=== PATIENT | male | born 1980 | race Caucasian/White ===

== ENCOUNTER 2017-02-18 12:45 | Outpatient (CLI) | payer OTHER ==
[2017-02-18] MEDS ORDERED: IOTHALAMATE MEGLUMINE 50 ML VIAL ONE (13:17)
[2017-02-18] MEDS ORDERED: GADOPENTETATE DIMEGLUMINE 5 ML VIAL IVP ONE ×3 (13:17→15:00)
[2017-02-18] MEDS ORDERED: LIDOCAINE 1% 10 ML MDV ONE ×2 (13:18→13:52)
[2017-02-18] MEDS ORDERED: IOTHALAMATE MEGLUMINE 50 ML VIAL IVP ONE ×2 (14:14→15:00)
[2017-02-18] MEDS ORDERED: BUFFERED LIDOCAINE 10 ML SYRINGE IU ONE ×2 (14:14→15:00)
[2017-02-18] MEDS: LIDOCAINE 1% 10 ML MDV SUBQ ONE ×2 (14:16→15:19)
--- NOTE | 2017-02-18 17:08 | MRI Report ---
EXAM: LEFT SHOULDER MRI ARTHROGRAM WITH CONTRAST EXAM DATE: 02/18/2017 03:33 PM. CLINICAL HISTORY: Bilateral shoulder pain and decreased range of motion for 4-5 months. COMPARISON: None. TECHNIQUE: Multiplanar, multisequence T1-weighted and fluid-sensitive sequences of the shoulder after an arthrographic injection of dilute gadolinium, dictated under a separate exam. Other: None. FINDINGS: Acromioclavicular Region: The acromion is type II. The acromioclavicular joint is unremarkable. The c oracoacromial and coracoclavicular ligaments are intact. There is no contrast or fluid in the subacro mial/subdeltoid bursa. Glenohumeral Region: No subluxation. No loose bodies. The articular cartilage is unremarkable. The gl enohumeral ligaments and joint capsule are unremarkable. Bone Marrow: No fracture, marrow edema or bone lesions. Labrum: The labrum is unremarkable. Biceps Tendon: The long head of the biceps tendon and biceps christofer are intact. Musculature/Rotator Cuff: The subscapularis, supraspinatus, infraspinatus, and teres minor tendons ar e intact. No edema or fatty atrophy. Other: The subcutaneous tissues are unremarkable. IMPRESSION: 1. No acute findings. [facility] MUSCULOSKELET[facility]IOLOG[facility] SECTION Referring Provider Line: [phone] SITE ID: [id number]
--- NOTE | 2017-02-18 17:08 | MRI Report ---
EXAM: RIGHT SHOULDER MRI ARTHROGRAM WITH CONTRAST EXAM DATE: 02/18/2017 03:33 PM. CLINICAL HISTORY: Bilateral shoulder pain and decreased range of motion for 4-5 months. COMPARISON: None. TECHNIQUE: Multiplanar, multisequence T1-weighted and fluid-sensitive sequences of the shoulder after an arthrographic injection of dilute gadolinium, dictated under a separate exam. Other: None. FINDINGS: Acromioclavicular Region: The acromion is type II. Mild acromioclavicular osteoarthropathy is present . The coracoacromial and coracoclavicular ligaments are intact. There is no contrast or fluid in the subacromial/subdeltoid bursa. Glenohumeral Region: No subluxation. No loose bodies. The articular cartilage is unremarkable. The gl enohumeral ligaments and joint capsule are unremarkable. Bone Marrow: No fractures. There is minimal osteophyte formation in the glenohumeral joint. Labrum: The labrum is unremarkable. Biceps Tendon: The long head of the biceps tendon and biceps christofre are intact. Musculature/Rotator Cuff: The subscapularis tendon is unremarkable. The supraspinatus tendon has a pa rtial-thickness joint-sided tear, which measures 1.3 cm in width, 1.3 cm in length, and is 80% in thi ckness. Infraspinatus and teres minor tendons are intact. No edema or fatty atrophy. Other: The subcutaneous tissues are unremarkable. IMPRESSION: 1. Minimal glenohumeral osteoarthropathy. 2. Partial tear of the supraspinatus tendon. [facility] MUSCULOSKELET[facility]IOLOG[facility] SECTION Referring Provider Line: [phone] SITE ID: [id number]
--- NOTE | 2017-02-18 17:59 | XRAY Report ---
FLUOROSCOPICALLY-GUIDED RIGHT SHOULDER INJECTION FOR MR ARTHROGRAM: 02/18/2017 CLINICAL INDICATION: Pain. Following obtaining informed consent, the patient's right shoulder was prepped and draped in the usua l sterile fashion. The skin and soft tissues were anesthetized with lidocaine. A spinal needle was inserted into the right glenohumeral joint space, and following confirmation of needle positioning, a combination of iodinated contrast, dilute gadolinium, and lidocaine was injected intraarticularly. The patient tolerated the procedure well. No immediate complications. IMPRESSION: SUCCESSFUL RIGHT SHOULDER INJECTION FOR MR ARTHROGRAM. FLUOROSCOPY TIME: 24 seconds; one spot image obtained. JOB #: [id number] EXT JOB #:[id number]
--- NOTE | 2017-02-18 18:03 | XRAY Report ---
FLUOROSCOPICALLY-GUIDED LEFT SHOULDER INJECTION FOR MR ARTHROGRAM: 02/18/2017 CLINICAL INDICATION: Pain. Following obtaining informed consent, the patient's left shoulder was prepped and draped in the usual sterile fashion. The skin and soft tissues were anesthetized with lidocaine. A spinal needle was i nserted into the left glenohumeral joint, and following confirmation of needle positioning, a combina tion of iodinated contrast, dilute gadolinium, and lidocaine was injected intraarticularly. The abilio ent tolerated the procedure well. No immediate complications. IMPRESSION: SUCCESSFUL LEFT SHOULDER INJECTION FOR MR ARTHROGRAM. FLUOROSCOPY TIME: 26 seconds; one spot image obtained. JOB #: [id number] EXT JOB #:[id number]
== END 2017-02-18 12:46 | disposition home or self-care (01) ==
LOC: DI 12:45
PROVIDERS: ATTEND General Practice
DX: M19.011 Primary osteoarthritis, right shoulder (principal); M75.101 Unspecified rotator cuff tear or rupture of right shoulder, not specified as traumatic; M25.512 Pain in left shoulder
CPT/HCPCS: 23350; 73222; 77002; Q9961

== ENCOUNTER 2017-11-22 14:36 | Outpatient (CLI) | payer OTHER | END 2017-11-22 14:37 | disposition home or self-care (01) | LOC: SC 14:36 | PROVIDERS: ATTEND Internal Medicine Pulmonary Disease | DX: G47.10 Hypersomnia, unspecified (principal); G47.8 Other sleep disorders; R06.83 Snoring; F17.210 Nicotine dependence, cigarettes, uncomplicated | CPT/HCPCS: 99203; 99212 ==

== ENCOUNTER 2018-01-26 19:19 | Outpatient (CLI) | payer OTHER | END 2018-01-26 19:20 | disposition home or self-care (01) | LOC: SC 19:19 | PROVIDERS: ATTEND Internal Medicine Pulmonary Disease | DX: R06.83 Snoring (principal); R09.02 Hypoxemia | CPT/HCPCS: 95810 ==

== ENCOUNTER 2018-03-15 12:46 | Outpatient (CLI) | payer OTHER | END 2018-03-15 12:47 | disposition home or self-care (01) | LOC: SC 12:46 | PROVIDERS: ATTEND Nurse Practitioner Family | DX: R06.83 Snoring (principal); R53.83 Other fatigue; F41.9 Anxiety disorder, unspecified; F32.9 Major depressive disorder, single episode, unspecified | CPT/HCPCS: 99212; 99214 ==